=== PATIENT | female | born 1955 | race Caucasian/White ===

== ENCOUNTER 2021-08-28 08:59 | Day surgery (SDC) | payer OTHER ==
[2021-08-27 13:40] VITALS: BMI 40.7
[2021-08-28] MEDS ORDERED: TRANEXAMIC ACID 1000 MG/10 ML VIAL IVPUSH ONE (09:02)
[2021-08-28] MEDS ORDERED: CEFAZOLIN 2 GM/D5W 2 GM/50 ML ML IVPB ONE (09:02)
[2021-08-28] MEDS ORDERED: CELECOXIB 200 MG CAPSULE PO ONE ×2 (09:02→09:50)
[2021-08-28] MEDS ORDERED: SODIUM CHLORIDE 0.9% P/F 10 ML VIAL IJ ONE (10:38)
[2021-08-28] MEDS ORDERED: MIDAZOLAM HCL 2 MG/2 ML SINGLE DOSE VIAL ONE ×2 (10:38→11:55)
[2021-08-28] MEDS ORDERED: BUPIVACAINE HCL/PF 0.5% (5MG/ML) 10 ML VIAL ONE (10:38)
[2021-08-28] MEDS ORDERED: BUPIVACAINE LIPOSOME/PF (EXPAREL) 266 MG/20 ML VIAL ONE (10:38)
[2021-08-28] MEDS ORDERED: ceFAZolin SODIUM 1 GM VIAL ONE (10:41)
[2021-08-28] MEDS ORDERED: VANCOMYCIN 1,000 MG VIAL (RESTRICTED TO ID ONLY) ONE (10:41)
[2021-08-28] MEDS ORDERED: PROPOFOL 20 ML ONE ×3 (11:14)
[2021-08-28] MEDS ORDERED: BUPIVACAINE HCL 50 ML ONE (11:31)
[2021-08-28] MEDS ORDERED: ONDANSETRON 4 MG/2 ML VIAL IVPUSH PRN ×2 (12:06→14:18)
[2021-08-28] MEDS ORDERED: MAGNESIUM HYDROX 2400MG/30ML ORAL SUSPENSION 30 ML CUP PO PRN (12:06)
[2021-08-28] MEDS ORDERED: ALBUTEROL SO4 HFA INHALER IH PRN ×2 (12:07→12:20)
[2021-08-28] MEDS ORDERED: LACTATED RINGERS SOLUTION 1,000 ML IV SCH (12:15)
[2021-08-28] MEDS ORDERED: ONDANSETRON 4 MG/2 ML VIAL ONE ×2 (13:58→14:31)
[2021-08-28] MEDS ORDERED: TRANEXAMIC ACID 1000 MG/10 ML VIAL ONE (13:58)
[2021-08-28] MEDS ORDERED: DEXAMETHASONE SOD PHOSPHATE 4 MG/1 ML VIAL ONE (13:58)
[2021-08-28] MEDS ORDERED: ACETAMINOPHEN INJECTION 100 ML IVPB ONE (14:10)
[2021-08-28] MEDS ORDERED: ACETAMINOPHEN 1000 MG/100 ML VIAL IVPB ONE (14:18)
[2021-08-28] MEDS ORDERED: oxyCODONE HCL 5 MG TABLET PO PRN (14:18)
[2021-08-28] MEDS ORDERED: PROMETHAZINE HCL 25 MG/1 ML VIAL ONE (15:07)
[2021-08-28] MEDS ORDERED: PROMETHAZINE HCL 25 MG/1 ML VIAL IVPUSH ONE (15:13)
[2021-08-28] MEDS: KETOROLAC TROMETHAMINE 30 MG/1 ML VIAL IVPUSH SCH ×2 (15:40→20:37)
[2021-08-28] MEDS ORDERED: CEFAZOLIN 3 GM in DEXTROSE 5%-WATER - 100 ML IVPB SCH (17:00)
[2021-08-28] MEDS: oxyCODONE HCL 5 MG TABLET PO PRN (18:15)
[2021-08-28] MEDS: CEFAZOLIN 3 GM in DEXTROSE 5%-WATER - 100 ML IVPB SCH (18:17)
[2021-08-28 18:52] LABS: HIV INTERPRETATION NEGATIVE (NEGATIVE)
[2021-08-28] MEDS: ACETAMINOPHEN 500 MG TABLET (FP) PO SCH (20:36)
[2021-08-28] MEDS: oxyCODONE HCL 10 MG SUSTAINED ACTING TABLET PO SCH (21:16)
[2021-08-28] MEDS: SENNOSIDES/DOCUSATE COMBO (SENNA PLUS) TABLET (UD) PO SCH (21:16)
[2021-08-29] MEDS: CEFAZOLIN 3 GM in DEXTROSE 5%-WATER - 100 ML IVPB SCH (01:30)
[2021-08-29] MEDS: ACETAMINOPHEN 500 MG TABLET (FP) PO SCH ×4 (01:30→21:24)
[2021-08-29] MEDS: oxyCODONE HCL 5 MG TABLET PO PRN (06:37)
[2021-08-29] MEDS: MAG HYDROX/AL HYDROX/SIMETH 30 ML UNIT-DOSE CUP PO PRN (06:38)
[2021-08-29 09:57] LABS: HEMATOCRIT 40.4 % (32.4-45.2); HEMOGLOBIN 13.7 GM/dL (10.7-15.3); MCH 28.7 pg (25.7-33.7); MCHC 33.9 g/dl (32.0-36.0); MEAN CELL VOLUME 84.8 fl (80-96); MEAN PLT VOLUME 8.2 fl (7.5-11.1); PLATELET COUNT 211 10^3/uL (134-434); RBC 4.76 M/mm3 (3.60-5.2); RDW 14.4 % (11.6-15.6); WHITE BLOOD COUNT 8.7 K/mm3 (4.0-10.0)
[2021-08-29] MEDS: MULTIVITAMINS (DAILY MVI) TABLET (FP) PO SCH (10:20)
[2021-08-29] MEDS: ASPIRIN 325 MG TABLET PO SCH (10:20)
[2021-08-29] MEDS: PANTOPRAZOLE 40 MG TABLET PO SCH (10:20)
[2021-08-29] MEDS: oxyCODONE HCL 10 MG SUSTAINED ACTING TABLET PO SCH ×2 (10:22→21:24)
[2021-08-29] MEDS: SENNOSIDES/DOCUSATE COMBO (SENNA PLUS) TABLET (UD) PO SCH ×2 (10:24→21:24)
[2021-08-29] MEDS: LACTATED RINGERS SOLUTION 1,000 ML IV SCH (10:42)
[2021-08-30] MEDS: ACETAMINOPHEN 500 MG TABLET (FP) PO SCH ×3 (02:00→13:32)
[2021-08-30] MEDS: ASPIRIN 325 MG TABLET PO SCH (08:26)
[2021-08-30] MEDS: LACTATED RINGERS SOLUTION 1,000 ML IV SCH ×2 (08:27→13:33)
[2021-08-30] MEDS: PANTOPRAZOLE 40 MG TABLET PO SCH (09:16)
[2021-08-30] MEDS: MULTIVITAMINS (DAILY MVI) TABLET (FP) PO SCH (09:16)
[2021-08-30] MEDS: SENNOSIDES/DOCUSATE COMBO (SENNA PLUS) TABLET (UD) PO SCH (09:16)
[2021-08-30] MEDS: oxyCODONE HCL 10 MG SUSTAINED ACTING TABLET PO SCH (09:16)
[2021-08-30 09:58] LABS: HEMATOCRIT 39.8 % (32.4-45.2); HEMOGLOBIN 13.6 GM/dL (10.7-15.3); MCH 28.8 pg (25.7-33.7); MCHC 34.1 g/dl (32.0-36.0); MEAN CELL VOLUME 84.5 fl (80-96); MEAN PLT VOLUME 8.3 fl (7.5-11.1); PLATELET COUNT 213 10^3/uL (134-434); RBC 4.71 M/mm3 (3.60-5.2); RDW 14.8 % (11.6-15.6); WHITE BLOOD COUNT 10.2 K/mm3 (4.0-10.0)
[2021-08-30] MEDS: MAG HYDROX/AL HYDROX/SIMETH 30 ML UNIT-DOSE CUP PO PRN (13:32)
[2021-08-30 14:28] VITALS: BP 122/84; PULSE 72; TEMP 98.6
== END 2021-08-30 17:40 | disposition home health service (06) ==
LOC: FASUSAT 08:59 → EDSTATUS 11:00 → FM/S 16:44 → FASUSAT 08-30 17:40
PROVIDERS: ATTEND Orthopaedic Surgery
PROC: 8E0YXBZ Computer Assisted Procedure of Lower Extremity (ICD-10-PCS; 2021-08-28)
PROC: 8E0Y0CZ Robotic Assisted Procedure of Lower Extremity, Open Approach (ICD-10-PCS; 2021-08-28)
PROC: 0SRD0J9 Replacement of Left Knee Joint with Synthetic Substitute, Cemented, Open Approach (ICD-10-PCS; principal; 2021-08-28 12:14)
DX: M17.12 Unilateral primary osteoarthritis, left knee (principal)
CPT/HCPCS: 20985; 27447; C1776; S2900; 36415; 73560-TC-LT-FY; 84460; 85027; 86803; 87340; 87389; 94760; 97010-GP; 97116-GP; 97163-GP; J0131

== ENCOUNTER 2021-12-25 05:54 | Day surgery (SDC) | payer OTHER ==
[2021-12-18 16:32] VITALS: BMI 40.7
[~2021-12-25 05:54] MED LIST: VANCOMYCIN 1,000 MG VIAL (RESTRICTED TO ID ONLY) IVPB ONE
[2021-12-25] MEDS ORDERED: TRANEXAMIC ACID 1000 MG/10 ML VIAL IVPUSH ONE (06:34)
[2021-12-25] MEDS ORDERED: CELECOXIB 200 MG CAPSULE PO ONE (06:34)
[2021-12-25] MEDS ORDERED: CEFAZOLIN 3 GM in DEXTROSE 5%-WATER - 100 ML IVPB ONE (06:34)
[2021-12-25] MEDS ORDERED: ceFAZolin SODIUM 1 GM VIAL ONE ×2 (07:12→16:34)
[2021-12-25] MEDS ORDERED: VANCOMYCIN 1,000 MG VIAL (RESTRICTED TO ID ONLY) ONE (07:13)
[2021-12-25] MEDS ORDERED: BUPIVACAINE HCL/PF 0.5% (5 MG/ML) 30 ML VIAL IJ ONE (07:38)
[2021-12-25] MEDS ORDERED: MIDAZOLAM HCL 2 MG/2 ML SINGLE DOSE VIAL ONE ×3 (07:38→07:48)
[2021-12-25] MEDS ORDERED: BUPIVACAINE HCL 50 ML ONE ×2 (07:39→07:49)
[2021-12-25] MEDS ORDERED: BUPIVACAINE LIPOSOME/PF (EXPAREL) 266 MG/20 ML VIAL ONE (07:39)
[2021-12-25] MEDS ORDERED: SODIUM CHLORIDE 0.9% P/F 10 ML VIAL IJ ONE (07:39)
[2021-12-25] MEDS ORDERED: DEXAMETHASONE SOD PHOSPHATE 4 MG/1 ML VIAL ONE (07:41)
[2021-12-25] MEDS ORDERED: PROPOFOL 20 ML ONE ×2 (07:41)
[2021-12-25] MEDS ORDERED: SUCCINYLCHOLINE CHLORIDE 200 MG/10 ML SYRINGE ONE (07:41)
[2021-12-25] MEDS ORDERED: ONDANSETRON 4 MG/2 ML VIAL ONE (07:41)
[2021-12-25] MEDS ORDERED: MAG HYDROX/AL HYDROX/SIMETH 30 ML UNIT-DOSE CUP PO PRN (08:04)
[2021-12-25] MEDS ORDERED: ONDANSETRON 4 MG/2 ML VIAL IVPUSH PRN ×2 (08:04→10:35)
[2021-12-25] MEDS ORDERED: LACTATED RINGERS SOLUTION 1,000 ML IV SCH (08:15)
[2021-12-25] MEDS ORDERED: VANCOMYCIN 1,000 MG VIAL (RESTRICTED TO ID ONLY) IVPB ONE (09:44)
[2021-12-25] MEDS ORDERED: oxyCODONE HCL 5 MG TABLET PO PRN (10:35)
[2021-12-25] MEDS ORDERED: ACETAMINOPHEN 500 MG TABLET (FP) ONE (11:12)
[2021-12-25] MEDS: ACETAMINOPHEN 500 MG TABLET (FP) PO SCH ×2 (11:16→18:00)
[2021-12-25] MEDS: ALBUTEROL SO4 HFA INHALER IH SCH ×2 (14:02→21:25)
[2021-12-25] MEDS ORDERED: DEXTROSE 5%-WATER - 100 ML IVPB ONE (16:33)
[2021-12-25] MEDS: CEFAZOLIN 3 GM in DEXTROSE 5%-WATER - 100 ML IVPB SCH (16:38)
[2021-12-25] MEDS: SENNOSIDES/DOCUSATE COMBO (SENNA PLUS) TABLET (UD) PO SCH (21:24)
[2021-12-25] MEDS: oxyCODONE HCL 5 MG TABLET PO PRN (21:28)
[2021-12-26] MEDS: ACETAMINOPHEN 500 MG TABLET (FP) PO SCH ×4 (00:43→17:24)
[2021-12-26] MEDS: CEFAZOLIN 3 GM in DEXTROSE 5%-WATER - 100 ML IVPB SCH (00:45)
[2021-12-26] MEDS: oxyCODONE HCL 5 MG TABLET PO PRN ×3 (06:41→12:42)
[2021-12-26] MEDS: ALBUTEROL SO4 HFA INHALER IH SCH ×2 (06:42→15:03)
[2021-12-26] MEDS ORDERED: ASPIRIN 325 MG TABLET PO SCH (08:00)
[2021-12-26 08:37] LABS: HEMATOCRIT 37.1 % (32.4-45.2); HEMOGLOBIN 12.2 GM/dL (10.7-15.3); MCH 26.3 pg (25.7-33.7); MEAN CELL VOLUME 79.6 fl (80-96); PLATELET COUNT 222 10^3/uL (134-434); RBC 4.66 M/mm3 (3.60-5.2); RDW 15.2 % (11.6-15.6); WHITE BLOOD COUNT 9.5 K/mm3 (4.0-10.0)
[2021-12-26] MEDS: SENNOSIDES/DOCUSATE COMBO (SENNA PLUS) TABLET (UD) PO SCH (09:35)
[2021-12-26] MEDS ORDERED: PANTOPRAZOLE 40 MG TABLET PO SCH (10:00)
[2021-12-26] MEDS ORDERED: MULTIVITAMINS (DAILY MVI) TABLET (FP) PO SCH (10:00)
[2021-12-26 14:06] VITALS: BP 91/65; PULSE 75; TEMP 98.9
== END 2021-12-26 17:38 | disposition home health service (06) ==
LOC: FASUSAT 05:54 → EDSTATUS 08:00 → FM/S 11:47 → FASUSAT 12-26 17:38
PROVIDERS: ATTEND Orthopaedic Surgery
PROC: 8E0YXBZ Computer Assisted Procedure of Lower Extremity (ICD-10-PCS; 2021-12-25)
PROC: 8E0Y0CZ Robotic Assisted Procedure of Lower Extremity, Open Approach (ICD-10-PCS; 2021-12-25)
PROC: 0SRC0J9 Replacement of Right Knee Joint with Synthetic Substitute, Cemented, Open Approach (ICD-10-PCS; principal; 2021-12-25 08:38)
DX: M17.11 Unilateral primary osteoarthritis, right knee (principal)
CPT/HCPCS: 20985; 27447; C1776; S2900; 36415; 73560-TC-RT-FY; 85027; 94760; 97010-GP; 97116-GP; 97162-GP

== ENCOUNTER 2025-05-18 06:18 | Day surgery (SDC) | payer OTHER ==
[2025-05-16 13:31] VITALS: BMI 41.5
[2025-05-18] MEDS ORDERED: LIDOCAINE HCL/PF 2% SDV 5ML VIAL ONE (07:45)
[2025-05-18] MEDS ORDERED: PROPOFOL 20 ML ONE (07:46)
[2025-05-18] MEDS ORDERED: ONDANSETRON 4 MG/2 ML VIAL IVPUSH PRN (07:51)
[2025-05-18] MEDS ORDERED: DEXAMETHASONE SOD PHOSPHATE 4 MG/1 ML VIAL ONE (08:04)
[2025-05-18] MEDS ORDERED: ONDANSETRON 4 MG/2 ML VIAL ONE (08:04)
[2025-05-18] MEDS: LACTATED RINGERS SOLUTION 1,000 ML IV SCH (08:25)
[2025-05-18 15:12] VITALS: RESP 18
[2025-05-19 10:24] VITALS: BP 121/53; PULSE 71; TEMP 97.9
== END 2025-05-19 13:43 | disposition home or self-care (01) ==
LOC: JASUSAT 06:18 → J6S 10:55 → JASUSAT 05-19 13:43
PROVIDERS: ATTEND Urology
PROC: 3E0K8GC Introduction of Other Therapeutic Substance into Genitourinary Tract, Via Natural or Artificial Opening Endoscopic (ICD-10-PCS; principal; 2025-05-18 07:30)
DX: N39.3 Stress incontinence (female) (male) (principal)
CPT/HCPCS: 94760; L8606